=== PATIENT | male | born 1970 | race African-American/Black ===

== ENCOUNTER 2022-02-01 07:26 | Emergency (ER) | payer BC ==
[~2022-02-01] VITALS: Ht 172.7 cm; Wt 86.2 kg
[2022-02-01] MEDS ORDERED: OFLOXACIN5 ML OP (07:36)
== END 2022-02-01 08:19 | disposition home or self-care (01) ==
LOC: ER 07:32
DX: H00.15 Chalazion left lower eyelid (principal)
CPT/HCPCS: 99283

== ENCOUNTER 2024-12-12 17:07 | Emergency (ER) | payer BC ==
[~2024-12-12 17:07] MED LIST: OFLOXACIN5 ML OP
== END 2024-12-12 18:07 | disposition short-term general hospital (02) ==
LOC: ER 18:07
DX: M54.50 Low back pain, unspecified (principal)